=== PATIENT | male | born 1965 | race Caucasian/White ===

== ENCOUNTER 2018-11-19 15:07 | Emergency (ER) | payer MEDICAID, OTHER ==
[~2018-11-19] VITALS: Ht 182.9 cm; Wt 90.7 kg
[2018-11-19 17:05] VITALS: BP 116/83
[2018-11-19] MEDS ORDERED: cefTRIAXone SOD 1,000 MG VL IM ONE (17:15)
[2018-11-19] MEDS ORDERED: TETANUS-DIPTH-ACEL PERTUSSIS 0.5ML SYRG IM ONE (17:15)
== END 2018-11-19 17:32 | disposition home or self-care (01) ==
LOC: ER 15:09
DX: S60.562A Insect bite (nonvenomous) of left hand, initial encounter (principal); S60.561A Insect bite (nonvenomous) of right hand, initial encounter; S80.862A Insect bite (nonvenomous), left lower leg, initial encounter; S80.861A Insect bite (nonvenomous), right lower leg, initial encounter; W57.XXXA Bitten or stung by nonvenomous insect and other nonvenomous arthropods, initial encounter; Y93.89 Activity, other specified; Y92.89 Other specified places as the place of occurrence of the external cause; Y99.8 Other external cause status
CPT/HCPCS: 90471; 90715; 96372; 99283; J0696

== ENCOUNTER 2019-02-05 14:08 | Inpatient (IN) | payer MEDICAID | END 2019-02-07 16:15 | disposition home or self-care (01) | LOC: ER 14:08 → TELE 14:09 → TELE-WESTW 22:15 | DX: I20.0 Unstable angina (principal); I11.0 Hypertensive heart disease with heart failure; I50.42 Chronic combined systolic (congestive) and diastolic (congestive) heart failure; I48.3 Typical atrial flutter; R53.1 Weakness; D64.9 Anemia, unspecified ==

== ENCOUNTER 2019-02-12 09:21 | Inpatient (IN) | payer MEDICAID | END 2019-02-14 13:00 | disposition home or self-care (01) | LOC: ER 09:21 → TELE-EAST 09:22 | PROC: B246ZZ4 Ultrasonography of Right and Left Heart, Transesophageal (ICD-10-PCS; principal; ~2019-02-12) | PROC: 5A2204Z Restoration of Cardiac Rhythm, Single (ICD-10-PCS; ~2019-02-12) | DX: I48.92 Unspecified atrial flutter (principal); I11.0 Hypertensive heart disease with heart failure; I50.9 Heart failure, unspecified; E03.9 Hypothyroidism, unspecified; I10 Essential (primary) hypertension; R09.89 Other specified symptoms and signs involving the circulatory and respiratory systems; D64.9 Anemia, unspecified; R53.1 Weakness ==

== ENCOUNTER 2020-03-14 10:10 | Emergency (ER) | payer MEDICAID ==
[~2020-03-14] VITALS: Ht 182.9 cm; Wt 108.9 kg
[~2020-03-14 10:10] MED LIST: AMIO200T33 PO; APIX5TAB OR; CLON0.1T PO; DILT60TA27 PO; FURO40TA4 PO; METO-169 PO; POTA10TA51 PO
[2020-03-14 10:20] VITALS: BP 133/88
== END 2020-03-14 11:14 | disposition left against medical advice (07) ==
LOC: EDBD 10:10 → EDUNIT# 10:10 → ER 10:10
DX: R07.9 Chest pain, unspecified (principal)
CPT/HCPCS: 93005

== ENCOUNTER 2021-03-31 14:39 | Inpatient (IN) | payer MEDICAID ==
[~2021-03-31] VITALS: Ht 182.9 cm; Wt 102.1 kg
[~2021-03-31 14:39] MED LIST changes: +DILT60TA PO; -DILT60TA27 PO; -METO-169 PO; +METO-289 PO
[2021-03-31 15:21] VITALS: BP 127/88
[2021-03-31 15:35] LABS: Basophils # (auto) 0.1 10 ^3/uL (0-0.2); Basophils % (auto) 0.8 % (0.0-2.0); Eosinophils # (auto) 0.1 10 ^3/uL (0-0.8); Eosinophils % (auto) 0.4 % (0.0-7.0); Hematocrit 44.4 % (41.0-53.0); Hemoglobin 15.1 g/dL (13.5-17.5); Lymphocytes % (auto) 17.4 % (10.0-50.0); Mean Corpuscular Hemoglobin 31.1 pg (28.0-32.0); Mean Corpuscular Volume 91.5 fL (80.0-100.0); Monocytes # (auto) 0.7 10 ^3/uL (0-1.3); Monocytes % (auto) 6.3 % (0.0-12.0); Neutrophils # (auto) 8.5 10 ^3/uL (1.6-8.6); Neutrophils % (auto) 75.1 % (37.0-80.0); Red Blood Cells 4.85 10^6/uL (4.5-5.90); Red Cell Distribution Width 13.8 % (11.8-14.3); White Blood Cell 11.3 10^3/uL (4.4-10.8)
[2021-03-31 15:52] LABS: Albumin 3.8 g/dL (3.4-5.0); Calcium 9.4 mg/dL (8.5-10.1); Magnesium 2.5 mg/dL (1.6-2.6); Potassium 3.8 mmol/L (3.5-5.1)
[2021-03-31 15:58] LABS: BUN/Creatinine Ratio 10.8; Bilirubin, Total 0.7 mg/dL (0.2-1.0); Total Protein 7.9 g/dL (6.4-8.2)
[2021-03-31] MEDS ORDERED: NITROGLYCERIN 0.4 MG SL TAB SL PRN (17:15)
[2021-03-31] MEDS ORDERED: MORPHINE SULFATE INJECTION 2 MG/ML SYRG IV PRN (17:15)
[2021-03-31] MEDS ORDERED: HYDROcodone-ACET 5/325MG TAB PO PRN (17:15)
[2021-03-31] MEDS ORDERED: MORPHINE SULFATE 4 MG/ML SYR/VIAL IV PRN (17:15)
[2021-03-31] MEDS ORDERED: TEMAZEPAM 15 MG CAP PO PRN (17:15)
[2021-03-31] MEDS ORDERED: DOCUSATE SOD 100 MG CAP PO PRN (17:15)
[2021-03-31] MEDS ORDERED: ONDANSETRON HCL 4 MG/2 ML VIAL IV PRN (17:15)
[2021-03-31] MEDS ORDERED: ACETAMINOPHEN 325 MG TAB PO PRN (17:15)
[2021-04-01] MEDS ORDERED: ENOXAPARIN SOD 40 MG/0.4 ML SYRINGE SC SCH (10:00)
== END 2021-03-31 17:39 | disposition left against medical advice (07) | DRG 198 ==
LOC: ER 14:39 → TELE 17:03
PROVIDERS: ADMIT Internal Medicine; ATTEND Internal Medicine
DX: I24.9 Acute ischemic heart disease, unspecified (principal); I13.0 Hypertensive heart and chronic kidney disease with heart failure and stage 1 through stage 4 chronic kidney disease, or unspecified chronic kidney disease; I50.9 Heart failure, unspecified; Z53.29 Procedure and treatment not carried out because of patient's decision for other reasons; E66.9 Obesity, unspecified; E78.5 Hyperlipidemia, unspecified; F12.90 Cannabis use, unspecified, uncomplicated; F15.10 Other stimulant abuse, uncomplicated; I25.10 Atherosclerotic heart disease of native coronary artery without angina pectoris; N18.9 Chronic kidney disease, unspecified; Z68.30 Body mass index [BMI] 30.0-30.9, adult; Z82.3 Family history of stroke; Z82.49 Family history of ischemic heart disease and other diseases of the circulatory system; Z82.5 Family history of asthma and other chronic lower respiratory diseases
CPT/HCPCS: 36415; 71046; 80053; 83735; 83880; 84484; 85025; 85379; 93005; G0378